=== PATIENT | female | born 1935 | race Caucasian/White ===

== ENCOUNTER 2016-08-25 14:25 | Emergency (ER) | payer MEDICARE, MEDICAID ==
[~2016-08-25] VITALS: Ht 165.1 cm; Wt 65.8 kg
[~2016-08-25 14:25] MED LIST: DUONEB 3 MG/3 ML3 M1 NEB; FERROUS SULFATE1 GRA; FOLIC ACID1 MG PO; HOSPBED; IRON324 M1 PO; LEVAQUIN750 MG PO; LEVOTHYROXIN0.075 MG PO; LIPITOR20 MG PO; LISINOPRIL5 MG PO; MULTIPLE VITAMI1 CAP PO; MULTIPLE VITAMI1 TA3 PO; NEBULIZER; PREDNISONE10 MG PO; PRILOSEC20 MG PO; TEGRETOL XR200 MG PO; Tegretol-Xr 10100 MG PO; WHEELCHAIR; ZOLOFT100 MG PO; ZYPREXA5 MG PO
[2016-08-25 15:09] LABS: HEMATOCRIT 26.8 % (37.0-47.0); HEMOGLOBIN 7.5 g/dl (12.0-16.0); MEAN CELL VOLUME 101.9 fl (81.0-99.0); MEAN CORPUSCULAR HGB 28.5 pg (27.0-31.0); MEAN PLATELET VOLUME 11.1 fl (9.6-12.3); NUCLEATED RED BLOOD CELL 0.3 10*3/uL (0.0-0.0); NUCLEATED RED BLOOD CELL 1.2 % (0.0-0.0); PLATELET COUNT AUTOMATED 471 10*3/uL (130-400); RED BLOOD COUNT 2.63 10*6/uL (4.10-5.10); RED CELL DISTRI WIDTH 15.3 % (0-14.5); WHITE BLOOD COUNT 26.7 10*3/uL (4.8-10.8)
[2016-08-25 15:29] LABS: ALBUMIN 1.8 gm/dl (3.1-4.5); BILIRUBIN, TOTAL 0.2 mg/dl (0.2-1.0)
[2016-08-25 15:30] LABS: LYMPHOCYTE # 6.7 10*3/uL (1.3-4.4); METAMYELOCYTES 3 % (0-0); MONOCYTE # 0.8 10*3/uL (0.1-1.0); MYELOCYTES 3 % (0-0); NEUTROPHIL # 17.4 10*3/uL (2.3-7.9); NEUTROPHILS 65 % (47-73); PROMYELOCYTES 1 % (0-0); TOTAL CELLS COUNTED 100 #CELLS
[2016-08-25 15:32] LABS: CKMB 2.6 ng/ml (0.5-3.6)
[2016-08-25 15:33] LABS: PLATELET SUFFICIENCY HIGH (NORMAL); POLYCHROMASIA SLIGHT
[2016-08-25 15:42] LABS: ABG HCO3 11.6 mmol/l (22-26); ABG TEMPERATURE 98.1 F (98.0-99.0)
[2016-08-25 15:44] LABS: ABG BASE EXCESS -17.9 mmol/L (-2.0-2.0); ARTERIAL BLOOD GAS PH 7.038 (7.35-7.45)
[2016-08-25 15:46] LABS: TROPONIN I 0.169 ng/ml (<0.045)
[2016-08-25 16:17] VITALS: BP 134/44
[2016-08-25 17:05] LABS: LA>2 REFLEX 2 HR DRAW NOW
== END 2016-08-25 17:00 | disposition short-term general hospital (02) ==
LOC: ED 14:25
PROVIDERS: Emergency Medicine
DX: I46.9 Cardiac arrest, cause unspecified (principal); R65.21 Severe sepsis with septic shock; K21.9 Gastro-esophageal reflux disease without esophagitis; I10 Essential (primary) hypertension; E78.00 Pure hypercholesterolemia, unspecified; E03.9 Hypothyroidism, unspecified; G40.909 Epilepsy, unspecified, not intractable, without status epilepticus; Z98.890 Other specified postprocedural states; Z79.899 Other long term (current) drug therapy; Z88.1 Allergy status to other antibiotic agents